=== PATIENT | female | born 1985 | race Hispanic/Latino ===

== ENCOUNTER 2022-03-21 17:07 | Day surgery (SDC) | payer SELFPAY ==
[2022-03-21] MEDS ORDERED: hydrALAZINE 20 MG/ML VIAL SLOW IVP PRN (17:58)
[2022-03-21 18:12] VITALS: BMI 42.6
== END 2022-03-21 19:39 | disposition home or self-care (01) ==
LOC: CSHLD/OP 17:07
PROVIDERS: ATTEND Obstetrics & Gynecology
DX: O09.523 Supervision of elderly multigravida, third trimester (principal); Z3A.33 33 weeks gestation of pregnancy
CPT/HCPCS: 76805; 99283

== ENCOUNTER 2022-05-01 22:32 | Inpatient (IN) | payer MEDICAID, SELFPAY ==
[2022-05-01 22:39] VITALS: BMI 40.2
[2022-05-01] MEDS ORDERED: hydrALAZINE 20 MG/ML VIAL SLOW IVP PRN (22:41)
[2022-05-01 23:11] LABS: Amphetamine Not Detected (NotDetected); Barbiturates Screen Not Detected (NotDetected); Benzodiazepine Screen Not Detected (NotDetected); Cocaine Metabolite Screen Not Detected (NotDetected); Methadone Not Detected (NotDetected); Methamphetamine Not Detected (NotDetected); Opiate Screen Not Detected (NotDetected); Oxycodone Screen Not Detected (NotDetected); Phencyclidine (PCP) Not Detected (NotDetected); THC/Cannabinoid Screen Not Detected (NotDetected); Tricyclic Screen Not Detected (NotDetected)
[2022-05-01 23:38] LABS: Hemoglobin 11.2 g/dL (12.0-15.5); Mean Corpuscular HGB CONC 32.6 g/dL (32.0-36.0); Mean Corpuscular Hemoglobin 28.8 pg (27.0-33.0); Mean Corpuscular Volume 88.4 fl (81.6-98.3); Mean Platelet Volume 10.9 fl (7.4-10.4); Platelet Count 263 10x3/uL (150-450); RBC Distribution Width 13.8 % (11.5-14.5); Red Blood Cell (RBC) Count 3.89 10x6/uL (3.90-5.03); White Blood Cell (WBC) Count 6.8 10x3/uL (3.5-10.5)
[2022-05-02 00:09] LABS: Syphilis Antibody Nonreactive (Nonreactive); Syphilis Antibody Index 0.03 S/CO (<1.00 Non-Reactive)
[2022-05-02] MEDS ORDERED: Lidocaine 1% (PF) 30 ML VIAL SC PRN (01:46)
[2022-05-02] MEDS ORDERED: Promethazine HCl 25 MG/ML VIAL IM PRN (01:46)
[2022-05-02] MEDS ORDERED: Ibuprofen 800 MG TAB PO PRN (01:46)
[2022-05-02] MEDS ORDERED: Misoprostol 200 MCG TAB PR PRN (01:46)
[2022-05-02] MEDS ORDERED: Butorphanol Tartrate 1 MG/ML VIAL SLOW IVP PRN (01:46)
[2022-05-02] MEDS ORDERED: Acetaminophen 500 MG TAB PO PRN (01:46)
[2022-05-02] MEDS ORDERED: Tranexamic Acid 1,000 MG in Sodium Chloride 0.9% 250 ML 250 ML IVPB PRN (01:46)
[2022-05-02] MEDS ORDERED: Carboprost 250 MCG/ML AMP IM PRN (01:46)
[2022-05-02] MEDS ORDERED: Methylergonovine 0.2 MG/ML VIAL IM PRN (01:46)
[2022-05-02] MEDS ORDERED: hydrALAZINE 20 MG/ML VIAL SLOW IVP PRN (01:46)
[2022-05-02] MEDS ORDERED: NS w/ Oxytocin 30 units 500 ML IV SCH ×2 (02:00)
[2022-05-02] MEDS ORDERED: Penicillin G Potassium 5 MILL.UNITS in Sodium Chloride 0.9% 100 ML IVPB SCH (02:00)
[2022-05-02] MEDS: Lactated Ringer's 1,000 ML IV SCH (02:23)
[2022-05-02] MEDS: Penicillin G 2.5 MILL.units 2.5 MILL.UNITS in Premix Bag 1 BAG IVPB SCH ×2 (02:25→06:59)
[2022-05-02 03:13] LABS: SARS-CoV-2 NAA Rapid Test Not Detected (NotDetected)
[2022-05-02 04:25] LABS: HIV (1/2) Antibody/Antigen Non-Reactive (NonReactive)
[2022-05-02 14:16] LABS: HBSAB Concentration Less than 8.00 mIU/mL; Hep B Surf AB Non-Reactive (NonReactive); Hep C IgG Ab Non-Reactive (NonReactive); Hep C Index 0.07 S/CO (0-0.79)
[2022-05-02] MEDS: Ondansetron PF 4 MG/2 ML Vial IVP PRN (18:31)
[2022-05-02] MEDS ORDERED: Fentanyl 2 mcg/Bup 0.1% Cadd 0 ML ONE (19:46)
[2022-05-02] MEDS ORDERED: Zolpidem Tartrate 5 MG TAB PO PRN (20:29)
[2022-05-02] MEDS ORDERED: Bisacodyl 10 MG SUPP PR PRN (20:29)
[2022-05-02] MEDS ORDERED: diphenhydrAMINE 25 MG CAP PO PRN (20:29)
[2022-05-02] MEDS ORDERED: Boostrix 0.5 ML (Tdap) VIAL (>/=7 yrs of age) IM ONE (20:29)
[2022-05-02] MEDS ORDERED: Measles/Mumps/Rubella 10 MCG/0.5 ML VIAL SC ONE (20:29)
[2022-05-02] MEDS ORDERED: Preparation H Ointment 28 GM TUBE PR PRN (20:29)
[2022-05-02] MEDS ORDERED: Lanolin Ointment 7 GM TUBE TOP PRN (20:29)
[2022-05-02] MEDS ORDERED: Milk Of Magnesia 30 ML UDCUP PO PRN (20:29)
[2022-05-02] MEDS: Docusate 100 MG CAP PO SCH (21:00)
[2022-05-03] MEDS: HYDROcodone/Acetaminophen 5/325 mg Tablet PO PRN (00:39)
[2022-05-03] MEDS: Lactated Ringer's 1,000 ML IV SCH ×4 (01:50→21:51)
[2022-05-03] MEDS ORDERED: Misoprostol 200 MCG TAB ONE (01:58)
[2022-05-03] MEDS ORDERED: Misoprostol 200 MCG TAB PO SCH (02:15)
[2022-05-03] MEDS: Ondansetron PF 4 MG/2 ML Vial IVP PRN (02:43)
[2022-05-03 02:48] LABS: #Basophils 0.1 10x3/uL (0.0-0.2); #Monocytes 1.6 10x3/uL (0.0-1.1); #Neutrophils 10.5 10x3/uL (1.5-8.4); %Basophils 0.4 % (0.0-2.0); %Eosinophils 0.1 % (0.0-6.0); %Lymphocytes 14.3 % (18.0-47.0); %Monocytes 10.9 % (0.0-10.0); %Neutrophils 73.8 % (40.0-75.0); Hemoglobin 9.1 g/dL (12.0-15.5); Mean Corpuscular HGB CONC 32.7 g/dL (32.0-36.0); Mean Corpuscular Hemoglobin 29.1 pg (27.0-33.0); Mean Corpuscular Volume 88.8 fl (81.6-98.3); Mean Platelet Volume 10.4 fl (7.4-10.4); Platelet Count 367 10x3/uL (150-450); RBC Distribution Width 13.7 % (11.5-14.5); Red Blood Cell (RBC) Count 3.13 10x6/uL (3.90-5.03); White Blood Cell (WBC) Count 14.2 10x3/uL (3.5-10.5)
[2022-05-03 03:30] LABS: Hep B Surf Ag Non-Reactive S/CO (NonReactive)
[2022-05-03] MEDS ORDERED: Diphenoxylate HCl/Atropine Tablet PO SCH (04:15)
[2022-05-03] MEDS: Ibuprofen 800 MG TAB PO PRN ×3 (05:39→22:03)
[2022-05-03] MEDS: Ferrous Sulfate 325 MG TAB PO SCH (09:43)
[2022-05-03] MEDS: Prenatal Vitamin 1 TAB PO SCH (09:43)
[2022-05-03] MEDS: Docusate 100 MG CAP PO SCH (09:43)
[2022-05-03] MEDS: Penicillin G 2.5 MILL.units 2.5 MILL.UNITS in Premix Bag 1 BAG IVPB SCH ×2 (16:45→16:46)
[2022-05-04] MEDS: HYDROcodone/Acetaminophen 5/325 mg Tablet PO PRN (01:02)
[2022-05-04] MEDS: Docusate 100 MG CAP PO SCH ×3 (01:03→19:10)
[2022-05-04] MEDS: Prenatal Vitamin 1 TAB PO SCH (08:23)
[2022-05-04] MEDS: Ferrous Sulfate 325 MG TAB PO SCH ×2 (08:23→19:02)
[2022-05-04] MEDS: Ibuprofen 800 MG TAB PO PRN (14:09)
[2022-05-04] MEDS: Lactated Ringer's 1,000 ML IV SCH (19:02)
[2022-05-04 19:17] VITALS: BP 110/54; TEMP 97.9
== END 2022-05-04 21:05 | disposition home or self-care (01) | DRG 806 ==
LOC: CSHLD/OP 22:32 → CSHLD 05-02 01:37 → CSHPP 05-03
PROVIDERS: ADMIT Obstetrics & Gynecology; ATTEND Obstetrics & Gynecology
PROC: 10E0XZZ Delivery of Products of Conception, External Approach (ICD-10-PCS; principal; 2022-05-02)
PROC: 10907ZC Drainage of Amniotic Fluid, Therapeutic from Products of Conception, Via Natural or Artificial Opening (ICD-10-PCS; 2022-05-02)
PROC: 10H07YZ Insertion of Other Device into Products of Conception, Via Natural or Artificial Opening (ICD-10-PCS; 2022-05-02)
DX: O72.1 Other immediate postpartum hemorrhage (principal); D62 Acute posthemorrhagic anemia; Z37.0 Single live birth; Z3A.39 39 weeks gestation of pregnancy; Z91.013 Allergy to seafood; O99.03 Anemia complicating the puerperium
CPT/HCPCS: 36415; 80306; 85014; 85018; 85027; 86706; 86762; 86780; 86803; 86850; 86900; 86901; 87340; 87389; 99285; J0595; J2405; J2540; J3490; J7120; U0002